=== PATIENT | female | born 1980 | race Caucasian/White ===

== ENCOUNTER 2017-08-08 07:17 | Outpatient (CLI) | payer BC ==
--- NOTE | 2017-08-08 13:03 | NM ---
HIDA SCAN: Date: 08/08/17 HISTORY: Right upper quadrant pain. RADIOPHARMACEUTICAL: 5.1 mCi technetium-99m mebrofenin injected intravenously. FINDINGS: There is good tracer extraction by the liver with prompt excretion into the biliary tract and small b owel loops with normal filling of the gallbladder. The calculated gallbladder ejection fraction follo wing an oral fatty meal measures 15%. IMPRESSION: Gallbladder dyskinesia/chronic cholecystitis. POS: [facility]
== END 2017-08-08 07:18 | disposition home or self-care (01) ==
LOC: NM 07:17
PROVIDERS: ATTEND Surgery
DX: R10.11 Right upper quadrant pain (principal); K82.8 Other specified diseases of gallbladder; K81.1 Chronic cholecystitis
CPT/HCPCS: 78227; A9537

== ENCOUNTER 2017-08-13 15:08 | Outpatient (CLI) | payer BC ==
[2017-08-13 16:14] LABS: #Basophils 0.1 thou/uL (0.0-0.2); #Eosinphils 0.1 thou/uL (0.0-0.7); #Lymphocytes 2.1 thou/uL (1.20-3.40); #Monocytes 0.4 thou/uL (0.11-0.59); %Basophils 0.8 % (0.0-1.0); %Eosinophils 1.2 % (0.0-10.0); %Lymphocytes 31.6 % (21.0-51.0); %Monocytes 5.7 % (0.0-10.0); %Neutrophils 60.7 % (42.0-75.0); Hemoglobin 13.4 g/dL (12.0-16.0); Mean Corpuscular HGB CONC 33.8 g/dL (32.0-36.0); Mean Corpuscular Hemoglobin 29.6 pg (27.0-31.0); Mean Corpuscular Volume 87.6 fl (81.0-99.0); Mean Platelet Volume 9.6 fL (7.4-10.4); Platelet Count 234 thou/uL (130-400); RBC Distribution Width 12.6 % (11.5-14.5); Red Blood Cell (RBC) Count 4.52 mill/uL (4.20-5.40); White Blood Cell (WBC) Count 6.7 thou/uL (4.8-10.8)
[2017-08-13 16:50] LABS: ALT (SGPT) 7 U/L (8-55); AST (SGOT) 14 U/L (5-34); Albumin 4.2 g/dL (3.5-5.0); Alkaline Phosphatase 66 U/L (40-150); Anion Gap 13 mmol/L (10-20); BUN (Urea Nitrogen) 7 mg/dL (7.0-18.7); Bilirubin, Direct 0.3 mg/dL (0.1-0.3); Bilirubin, Total 0.8 mg/dL (0.2-1.2); Calc. Creatinine Clearance 0 mL/min (70-130); Calcium 9.4 mg/dL (7.8-10.44); Carbon Dioxide 26 mmol/L (22-29); Chloride 104 mmol/L (98-107); Estimated GFR-MDRD 77; Globulin 2.6 g/dL (2.4-3.5); Glucose 80 mg/dL (70-105); Protein, Total 6.8 g/dL (6.0-8.3); Sodium 139 mmol/L (136-145)
== END 2017-08-13 15:09 | disposition home or self-care (01) ==
LOC: LABBT 15:08
PROVIDERS: ATTEND Surgery
DX: Z01.812 Encounter for preprocedural laboratory examination (principal); K81.1 Chronic cholecystitis
CPT/HCPCS: 80053; 80076; 85025

== ENCOUNTER 2017-08-15 06:59 | Day surgery (SDC) | payer BC ==
[2017-08-13 15:22] VITALS: BMI 22.4
[2017-08-15] MEDS ORDERED: cefOXitin 2 GM, Syringe 1 ML in Sterile Water 10 ML SLOW IVP SCH (07:30)
[2017-08-15] MEDS ORDERED: Midazolam HCl 2 mg/2 ml Vial ONE (08:08)
[2017-08-15] MEDS ORDERED: Lidocaine 2% w/Epinephrine 1:200K 20 ML VIAL ONE (08:38)
[2017-08-15] MEDS ORDERED: Bupivacaine 0.25% HCL 30 ML VIAL ONE (08:38)
[2017-08-15] MEDS ORDERED: Levofloxacin 500 mg/D5W 100 ml Premix Bag ONE (08:51)
[2017-08-15] MEDS ORDERED: Fentanyl 100 MCG/2 ML VIAL ONE ×3 (09:00→10:46)
[2017-08-15] MEDS ORDERED: SUGAMMADEX SODIUM 500 MG/5 ML VIAL ONE (09:49)
[2017-08-15] MEDS ORDERED: Ondansetron HCl/PF 4 MG/2 ML Vial ONE ×2 (10:25→15:16)
[2017-08-15] MEDS ORDERED: Labetalol HCl 100 MG/20 ML VIAL ONE (10:58)
--- NOTE | 2017-08-15 11:14 | OP ---
PREOPERATIVE DIAGNOSIS: Chronic cholecystitis. SURGEON: Rosalio Lanier M.D. PROCEDURE PERFORMED: Laparoscopic cholecystectomy. INDICATIONS: A 36-year-old female, who is having frequent epigastric and right upper quadrant pain, worse after eating. Ultrasound negative. HIDA scan showed a low ejection fraction of 15%. FINDINGS: There was a small amount of scar tissue. She had a very tortuous and small caliber cystic duct. PROCEDURE: After informed consent was obtained, the patient was taken to the operating room and give n general endotracheal anesthesia, placed in the supine position. The abdomen was prepped and draped in the usual fashion. Local anesthesia infiltrated subcutaneously and deep and a subumbilical incis ion was performed, subcu divided sharply. The fascia grasped and 2 stay sutures of 0 Vicryl placed t o either side of midline. Midline incised. Digital palpation revealed no local adhesions. A blunt 10-12 mm trocar inserted. Pneumoperitoneum was created to a pressure of 15 mmHg. A 0-degree laparos cope inserted. Under direct vision, three 5 mm ports placed subcostally. The gallbladder grasped an d advanced superiorly. Peritoneum lysed distally revealed small cystic duct and artery. These were triply ligated with Hemoclips and divided. The gallbladder removed from its fossa utilizing electroc autery, removed from the abdomen through the umbilical port. Hemostasis was assured. Trocars and re tractors removed. The fascia closed with interrupted 2-0 Vicryl suture. Skin closed with interrupte d 4-0 Rapide. Dermabond applied. The patient tolerated the procedure well and transferred to [facility] in good condition. Sponge and needle count verified and correct x2.
[2017-08-15] MEDS ORDERED: HYDROcodone/Acetaminophen 10/325 mg Tablet ONE (12:51)
[2017-08-15] MEDS ORDERED: Propofol 200 MG/20 ML VIAL ONE (15:16)
[2017-08-15] MEDS ORDERED: Dexamethasone 20 MG/5 ML VIAL ONE (15:16)
[2017-08-15] MEDS ORDERED: Lidocaine 1% PF 5 ML VIAL ONE (15:16)
[2017-08-15] MEDS ORDERED: Glycopyrrolate 0.2 MG/ML 5 ML SYRINGE ONE (15:16)
[2017-08-15] MEDS ORDERED: Ketorolac Tromethamine 30 MG/ML VIAL ONE (15:16)
[2017-08-15] MEDS ORDERED: PHENYLEPHRINE-NS 100 MCG/ML 10 ML SYRINGE ONE (15:16)
== END 2017-08-15 13:55 | disposition home or self-care (01) ==
LOC: SDC 06:59
PROVIDERS: ATTEND Surgery
PROC: 0FT44ZZ Resection of Gallbladder, Percutaneous Endoscopic Approach (ICD-10-PCS; principal; 2017-08-15)
DX: K81.1 Chronic cholecystitis (principal); Z88.1 Allergy status to other antibiotic agents; Z98.84 Bariatric surgery status; Z90.710 Acquired absence of both cervix and uterus
CPT/HCPCS: 88304; 96374; A4216; J0694; J1100; J1885; J1956; J2001; J2250; J2405; J2704; J3010; S0020

== ENCOUNTER 2017-11-15 22:19 | Inpatient (IN) | payer BC ==
[2017-11-16] MEDS ORDERED: Zolpidem Tartrate 5 MG TAB PO PRN (00:40)
[2017-11-16] MEDS ORDERED: Morphine 4 MG/ML VIAL SLOW IVP PRN (00:41)
[2017-11-16] MEDS ORDERED: Ketorolac Tromethamine 30 MG/ML VIAL IVP PRN (00:42)
[2017-11-16] MEDS: Morphine 4 MG/ML VIAL SLOW IVP PRN ×6 (00:55→23:04)
[2017-11-16] MEDS: Sodium Chloride 0.9% 1,000 ML IV SCH ×3 (01:10→23:04)
[2017-11-16 02:41] VITALS: BMI 23.7
[2017-11-16 05:39] LABS: #Eosinphils 0.2 thou/uL (0.0-0.7); RBC Distribution Width 12.1 % (11.5-14.5)
[2017-11-16 05:54] LABS: ALT (SGPT) 553 U/L (8-55); AST (SGOT) 1078 U/L (5-34); Albumin 3.6 g/dL (3.5-5.0); Alkaline Phosphatase 185 U/L (40-150); Anion Gap 10 mmol/L (10-20); BUN (Urea Nitrogen) 12 mg/dL (7.0-18.7); Bilirubin, Total 1.2 mg/dL (0.2-1.2); Calc. Creatinine Clearance 94 mL/min (70-130); Calcium 8.2 mg/dL (7.8-10.44); Carbon Dioxide 24 mmol/L (22-29); Chloride 108 mmol/L (98-107); Estimated GFR-MDRD 83; Glucose 73 mg/dL (70-105); Lipase 20 U/L (8-78); Protein, Total 5.6 g/dL (6.0-8.3); Sodium 138 mmol/L (136-145)
[2017-11-16 06:01] LABS: #Lymphocytes 1.7 thou/uL (1.20-3.40); #Monocytes 0.5 thou/uL (0.11-0.59); %Basophils 0.4 % (0.0-1.0); %Lymphocytes 39.4 % (21.0-51.0); %Monocytes 10.5 % (0.0-10.0); %Neutrophils 45.6 % (42.0-75.0); Hemoglobin 11.7 g/dL (12.0-16.0); Mean Corpuscular HGB CONC 33.4 g/dL (32.0-36.0); Mean Corpuscular Hemoglobin 28.7 pg (27.0-31.0); Mean Corpuscular Volume 85.9 fl (81.0-99.0); Mean Platelet Volume 9.3 fL (7.4-10.4); Platelet Count 179 thou/uL (130-400); Red Blood Cell (RBC) Count 4.08 mill/uL (4.20-5.40); White Blood Cell (WBC) Count 4.4 thou/uL (4.8-10.8)
[2017-11-16 14:19] LABS: HBCM Index 0.08 S/CO (0-0.79); HBSAg Index 0.24 S/CO (0-0.99); Hep A IgM AB Non-Reactive (NonReactive); Hep A IgM S/CO 0.11 S/CO (0-0.79); Hep B Surf Ag Non-Reactive S/CO (NonReactive); Hep C IgG Ab Non-Reactive (NonReactive); Hep C Index 0.06 S/CO (0-0.79); Hepatitis B Core IGM Abs Non-Reactive (NonReactive)
--- NOTE | 2017-11-16 15:07 | MRI ---
MR ABDOMEN WITHOUT CONTRAST MRCP: HISTORY: Status post lap cholecystectomy. Elevated LFTs. Epigastric pain. COMPARISON: None. TECHNIQUE: MRCP and abdomen MRI are performed with intravenous Gadolinium administration. Multisequential, mult iplanar imaging is performed. FINDINGS: Patchy T2 hyperintensity noted in the liver. Correlate for hepatitis vs cholangitis. There is appro priate signal intensity of the spleen, pancreas, and adrenal glands. Symmetric signal intensity of t he kidneys. No evidence of obstructive uropathy. Mesentery and alimentary canal are unremarkable. There is appropriate T2 signal intensity of the intrahepatic biliary system without evidence of dilat ation. The cystic duct remnant has T2 signal intensity. There is appropriate signal intensity in th e common bile duct, with the exception of the distal aspect of the common bile duct where there is tr uncation of signal. There is a general tapering and findings may be due to patient's anatomy at the level of the ampulla of Vater. The pancreatic does not appear to be enlarged. IMPRESSION: 1. No definite evidence of dilatation of the common bile duct. Termination of signal in the distal aspect of the common bile duct may be at the level of the ampulla of Vater. 2. Patchy areas of T2 hyperintensity of the liver, worrisome for hepatitis vs cholangitis. Correlat e with liver panel. POS: [facility]
--- NOTE | 2017-11-16 18:55 | CON ---
DATE OF CONSULTATION: 11/16/2017 HISTORY OF PRESENT ILLNESS: The patient is a 37-year-old female who was in her normal stat e of health until yesterday when she developed severe epigastric pain of sudden onset. She has not h ad prior pain like this. She did have an episode of syncope related to this pain. She had no nausea , vomiting. The patient underwent a cholecystectomy in July of this year for sludge and abnormal HIDA scan. PAST MEDICAL HISTORY: Significant for obesity, depression. PAST SURGICAL HISTORY: Includes sleeve gastrectomy, hysterectomy, cholecystectomy. HOME MEDICATIONS: Include Calcitrate 950 mg p.o. daily, Prozac 40 mg p.o. daily, Wellbutrin 1 p.o. b .i.d., Ambien 10 mg p.o. at bedtime, and multivitamin. SOCIAL HISTORY: She does not smoke or drink. FAMILY HISTORY: Negative for GI or liver disease. REVIEW OF SYSTEMS: Constitutional: No fever or chills, no weight loss. Eyes: No blurred vision or double vision. ENT: No sore throat or earaches. Cardiovascular: No chest pain or palpitations. Pulmonary: No shortness of breath, cough, or wheezing. Gastrointestinal: See above. Genitourinary : No hematuria or dysuria. Musculoskeletal: No joint pain or muscle weakness. Skin: No rashes. Neurologic: No numbness or seizure activity. PHYSICAL EXAMINATION: VITAL SIGNS: Temperature 97.8, pulse 79, respiratory rate 16, blood pressure 118/83. HEENT: Unremarkable. NECK: Supple. CHEST: Clear. CARDIOVASCULAR: Regular rate and rhythm. ABDOMEN: Soft, tender in the epigastric area without rebound or guarding. Bowel sounds are present and normoactive. RECTAL: Deferred. EXTREMITIES: Normal. NEUROLOGIC: Nonfocal. LABORATORY DATA AND X-RAY FINDINGS: Shows a white blood cell count of 4.4, hemoglobin 11.7, hematocr it 35.1. Chemistries show chloride 108, AST 1078, ALT of 553, alkaline phosphatase 185, total biliru bin 1.2. Hepatitis panel was negative. MRCP, I discussed this with the radiologist, and although th e full reading is not completed. He felt that the common bile duct and biliary tree were normal. He thought there were maybe some slight hepatitis. ASSESSMENT: 1. Severe epigastric pain associated with elevated transaminases - it certainly sounds like a biliar y colic, although the bilirubin is normal and MRCP does not show any biliary filling defects. She co uld have passed the stone or have other process. 2. Status post cholecystectomy. 3. Status post sleeve gastrectomy with large amount of weight loss. RECOMMENDATIONS: 1. Repeat LFTs. 2. Begin clears.
--- NOTE | 2017-11-17 01:22 | HP ---
CHIEF COMPLAINT: Epigastric pain. HISTORY OF PRESENT ILLNESS: Ms. Augustin is a 37-year-old woman who is 2 years out from a gastric s leeve with 100 pounds of weight loss. She underwent a laparoscopic cholecystectomy by Dr. Lanier for biliary dyskinesia in July without problems; however, yesterday evening she had fairly sudden ons et of severe epigastric pain. She states that the pain was so bad she felt like she almost fainted. She has not had any nausea or vomiting and has not had any melena or hematochezia. PAST MEDICAL HISTORY: Morbid obesity which has resolved after sleeve gastrectomy. PAST SURGICAL HISTORY: Laparoscopic sleeve gastrectomy, laparoscopic cholecystectomy, and hysterecto my. OUTPATIENT MEDICATIONS: Include Wellbutrin, Ambien, calcitriol, and Prozac. She also takes some mul tivitamin. FAMILY HISTORY: Noncontributory. REVIEW OF SYSTEMS: Ten-system review of systems is negative except per HPI. ALLERGIES: She reports an allergy to KEFLEX, but has tolerated multiple other antibiotics in the pas t. PHYSICAL EXAMINATION: VITAL SIGNS: The patient has been afebrile since her admission. Heart rate is in the 70s, blood pre ssure in the low normal range, and 96% saturated on room air. GENERAL: Reveals a pleasant woman in no acute distress. She does not appear flushed or toxic. She does look tired. BMI is 23. HEENT: Unremarkable. NECK: Supple, without lymphadenopathy or thyroid nodules. She is not jaundiced or icteric. HEART: Regular in its rate and rhythm without murmurs, rubs or gallops. LUNGS: Clear to auscultation bilaterally. ABDOMEN: Soft and nondistended. She is very tender to palpation in the epigastric area, more than t he right or left upper quadrants. She does not exhibit rigidity or rebound. She does have some volu ntary guarding. No palpable masses or hernias. Multiple healed surgical incisions. EXTREMITIES: Warm and well perfused without edema. NEUROLOGIC: No focal deficits. PSYCHIATRIC: Alert, oriented, and appropriate. LABORATORY DATA: Lab work at an outside ER showed AST and ALT in the 150s, which had gone up this mo rning to 1078 and 553, total bilirubin is 1.2, which is still in the normal range, but elevated from her baseline. ASSESSMENT: Epigastric pain and elevated LFTs. I discussed the patient's case with Dr. Pearson of [facility] roenterology, who recommended an MRCP. This was performed and did not show any definite obstruction of the bile duct. The distal common bile duct was not opacified which may be on the basis of the sph incter of Oddi. There was no definite filling defect or stone seen. She did have some patchy areas of hyperintensity in the liver, worrisome for possible hepatitis versus cholangitis, but she has not had any fevers and an acute hepatitis panel is negative. Currently, she is feeling better and the pa in has decreased spontaneously. During her hospital stay, she may have passed a gallstone prior to h er MRCP or she may have a non-hepatitis A, B, or C viral problem of the liver. At any case, she is c linically stable, we will just monitor her for now and follow her liver enzymes and provide symptomat ic relief.
[2017-11-17 05:11] LABS: #Eosinphils 0.3 thou/uL (0.0-0.7); #Lymphocytes 1.9 thou/uL (1.20-3.40); #Monocytes 0.4 thou/uL (0.11-0.59); #Neutrophils 2.2 thou/uL (1.40-6.50); %Basophils 0.6 % (0.0-1.0); %Eosinophils 5.9 % (0.0-10.0); %Lymphocytes 40.4 % (21.0-51.0); %Monocytes 7.5 % (0.0-10.0); %Neutrophils 45.7 % (42.0-75.0); Mean Corpuscular HGB CONC 32.2 g/dL (32.0-36.0); Mean Corpuscular Volume 86.9 fl (81.0-99.0); Mean Platelet Volume 9.1 fL (7.4-10.4); Platelet Count 166 thou/uL (130-400); RBC Distribution Width 12.2 % (11.5-14.5); Red Blood Cell (RBC) Count 3.93 mill/uL (4.20-5.40); White Blood Cell (WBC) Count 4.8 thou/uL (4.8-10.8)
[2017-11-17 05:30] LABS: ALT (SGPT) 325 U/L (8-55); AST (SGOT) 216 U/L (5-34); Albumin 3.3 g/dL (3.5-5.0); Alkaline Phosphatase 163 U/L (40-150); Anion Gap 8 mmol/L (10-20); BUN (Urea Nitrogen) 7 mg/dL (7.0-18.7); Bilirubin, Total 1.1 mg/dL (0.2-1.2); Calc. Creatinine Clearance 98 mL/min (70-130); Calcium 8.2 mg/dL (7.8-10.44); Carbon Dioxide 25 mmol/L (22-29); Chloride 108 mmol/L (98-107); Estimated GFR-MDRD 86; Globulin 1.8 g/dL (2.4-3.5); Glucose 79 mg/dL (70-105); Lipase 19 U/L (8-78); Potassium 3.9 mmol/L (3.5-5.1); Protein, Total 5.1 g/dL (6.0-8.3); Sodium 137 mmol/L (136-145)
[2017-11-17] MEDS: Morphine 4 MG/ML VIAL SLOW IVP PRN (06:16)
[2017-11-17] MEDS: Sodium Chloride 0.9% 1,000 ML IV SCH (06:31)
[2017-11-17] MEDS ORDERED: Pantoprazole 40 MG VIAL IVP SCH (09:00)
--- NOTE | 2017-11-17 10:20 | PRG ---
DATE OF SERVICE: 11/17/2017 SUBJECTIVE: The patient is feeling much better today. She is having less pain. She feels hungry. OBJECTIVE: VITAL SIGNS: Temperature 97.9, pulse 84, respiratory rate 14, blood pressure 124/85. CHEST: Clear. CARDIOVASCULAR: Regular rate and rhythm. ABDOMEN: Benign. LABORATORY DATA: Shows an improvement in LFTs. Hemoglobin 11. ASSESSMENT: Epigastric pain - suspect passage of a small stone. No evidence of residual stones. RECOMMENDATIONS: 1. Advance diet. 2. Stable for discharge from GI standpoint.
[2017-11-17] MEDS ORDERED: traMADol HCl 50 MG TAB PO PRN ×2 (10:32)
[2017-11-17 12:27] VITALS: BP 113/79; TEMP 98.2
== END 2017-11-17 13:00 | disposition home or self-care (01) | DRG 392 ==
LOC: OBSVTOIN 11-16 00:10 → SURG B 11-16 00:10
PROVIDERS: ADMIT Surgery; ATTEND Surgery
DX: R10.13 Epigastric pain (principal); B17.8 Other specified acute viral hepatitis; Z98.84 Bariatric surgery status; Z90.49 Acquired absence of other specified parts of digestive tract; R79.89 Other specified abnormal findings of blood chemistry; R55 Syncope and collapse; K80.80 Other cholelithiasis without obstruction
CPT/HCPCS: 36415; 74181; 80053; 80074; 83690; 85025; C9113; J1885; J2270

== ENCOUNTER 2018-01-30 10:39 | Outpatient (CLI) | payer BC | END 2018-01-30 10:40 | disposition home or self-care (01) | LOC: BICMRI 10:39 | PROVIDERS: ATTEND Anesthesiology Pain Medicine | DX: M50.121 Cervical disc disorder at C4-C5 level with radiculopathy (principal); M50.122 Cervical disc disorder at C5-C6 level with radiculopathy | CPT/HCPCS: 72141 ==